=== PATIENT | female | born 1985 | race African-American/Black ===

== ENCOUNTER 2023-04-28 16:39 | Emergency (ER) | payer MEDICAID, OTHER ==
[~2023-04-28] VITALS: Ht 175.3 cm; Wt 92.9 kg
[2023-04-28] MEDS ORDERED: IBUP1TAB5 PO (20:14)
[2023-04-28] MEDS ORDERED: CYCL-839 PO (20:14)
[2023-04-28] MEDS ORDERED: IBUPROFEN 800 MG TAB PO ONE (20:15)
[2023-04-28 21:43] VITALS: BP 120/77; PULSE 62; RESP 16; O2SAT 98
[2023-04-28 21:44] VITALS: TEMP 98.2
== END 2023-04-28 21:44 | disposition home or self-care (01) ==
LOC: ER 16:39
DX: S13.9XXA Sprain of joints and ligaments of unspecified parts of neck, initial encounter (principal); S93.401A Sprain of unspecified ligament of right ankle, initial encounter; S23.3XXA Sprain of ligaments of thoracic spine, initial encounter; S20.211A Contusion of right front wall of thorax, initial encounter; S05.11XA Contusion of eyeball and orbital tissues, right eye, initial encounter; S05.12XA Contusion of eyeball and orbital tissues, left eye, initial encounter; Y04.2XXA Assault by strike against or bumped into by another person, initial encounter; Y93.89 Activity, other specified; Y92.89 Other specified places as the place of occurrence of the external cause; Y99.8 Other external cause status
CPT/HCPCS: 70450; 70486; 71111; 72070; 72125; 73610